=== PATIENT | male | born 1960 | race Asian ===

== ENCOUNTER 2019-04-14 01:52 | Emergency (ER) ==
[~2019-04-14] VITALS: Ht 162.6 cm; Wt 65.3 kg
[2019-04-14 01:55] VITALS: BP 124/75
--- NOTE | 2019-04-14 03:40 | NUR ---
Patient given written and verbal discharge instructions. Patient verbalizes understanding of instructions. Patient is ambulatory with steady gait. long term placement resources , food and warm clothing were provided. Patient given list of available shelters in surrounding area. pt refused any assistance for transportation. per him he will provide his own trasportation. no name band. Addendum: 04/14/19 at 0344 by ARA pt had steady gait upon discharge
== END 2019-04-14 03:45 | disposition home or self-care (01) ==
LOC: ER 01:55
DX: S90.422A Blister (nonthermal), left great toe, initial encounter (principal); X58.XXXA Exposure to other specified factors, initial encounter; Y93.89 Activity, other specified; Y92.89 Other specified places as the place of occurrence of the external cause; Y99.8 Other external cause status